=== PATIENT | male | born 1995 | race Caucasian/White ===

== ENCOUNTER 2025-01-02 13:21 | Emergency (ER) | payer OTHER, SELFPAY ==
[2025-01-02 13:22] VITALS: BP 106/62; PULSE 66; RESP 14; TEMP 36.6; O2SAT 99; BMI 37.0
--- NOTE | 2025-01-02 13:52 | EX.ED.SAOD ---
HPI History of Present Illness Chief Complaint: Substance Abuse Informant: patient and spouse/S.O. Narrative Narrative: Presents here with spouse for medical evaluation. Patient relapsed with heroin injection in October using multiple times a day. He injects last times this morning. No alcohol use. his last detox program was 5 years ago through [facility]. Per spouse multiple stressors and hanging around the wrong people. They have plans to [facility] back [facility]. However per spouse she spoke with her insurance company and was told to need to get evaluated in the emergency department for assessment. He does not want to go through the ramp program.Denies any fevers, chest pain, back pain. Prior similar symptoms: Yes PFSH PFSH Medical History Heroin abuse ETOH abuse Home Medications ?Medication ?Instructions ?Recorded ?Last Taken ?Type NK 01/02/25 Unknown History Allergy/AdvReac Type Severity Reaction Status Date / Time No Known Allergies Allergy Verified 01/02/25 13:25 Social History Smoking Status: Current every day smoker tobacco type: e-cigarettes ROS ROS ED Constitutional Constitutional ED: Denies chills, fever(s) or sweats ENT ENT ED: Denies sore throat Cardiovascular Cardiovascular: Denies chest pain, leg edema, palpitations or racing heartbeat Respiratory/Chest Respiratory/Chest: Denies cough, dyspnea or dyspnea on exertion Gastrointestinal Gastrointestinal: Denies abdominal pain, diarrhea, nausea or vomiting Genitourinary Genitourinary ED: Denies dysuria, hematuria or urinary frequency Musculoskeletal Musculoskeletal: Denies back pain, extremity pain or neck pain Integumentary Denies rash or wounds Neurologic Neurologic: Denies headache(s), paresthesias or weakness Psychiatric Psychiatric: Denies suicidal ideation or suicidal thoughts EXAM Physical Exam Const Vital Signs: 01/02/25 13:22 Temperature 97.8 F Temperature Source Temporal Pulse Rate 66 Respiratory Rate 14 Blood Pressure 106/62 Blood Pressure Mean 76 Pulse Ox 99 Oxygen Delivery Method Room Air Positive well nourished and well developed General Appearance ED: well developed and NAD HEENT Reports moist mucous membranes normocephalic and atraumatic Eyes Eyes Narrative: 2 mm pupils bilaterally. General Eye ED: Yes normal appearance of both eyes Neck full ROM Chest Wall Chest: Negative for tenderness Resp normal respiratory effort and normal air movement Effort and Inspection: symmetric chest movement; Negative for respiratory distress Cardio regular rate, regular rhythm and no murmurs Peripheral Pulses: pulses 2+ throughout GI normal to inspection, nondistended, normoactive bowel sounds and non-tender Palpation: Negative for guarding or rebound tenderness present Extremity normal to inspection General Extremety ED: Negative for edema or tenderness General Extremity: Negative for edema Neuro oriented x3 and no sensory deficits noted Sensorium / Orientation: awake and alert Skin Skin Narrative: Previous scarring along vein lines bilateral upper extremities, left antecubital no puncture wounds with ecchymosis no erythema no drainage. MDM MDM MDM Narrative Medical decision making narrative: Interventions / MDM: Differential diagnosis: Heroin dependence, IV drug use Diagnosis considered but do not suspect: N/A My EKG interpretation: N/A Imaging independently reviewed and interpreted by myself: N/A External documents reviewed: N/A Test considered but not ordered:N/A ED course: Patient admits to relapse heroin for last 2 months while playing today last use this morning. Vital stable. No indication requiring Narcan. Discussed the patient about the ramp program however he does not want to go through the ramp program. Per spouse here through insurance requiring an assessment. He has been assessed he is medically cleared. Discussed no indication for blood work for which patient does not want. He will be discharged with plan outpatient treatment program tomorrow. All questions were answered. Re-evaluation: stable Disposition discussed with patient/family/significant other: Patient and spouse Case discussed with consulting clinician: N/A This note was generated with [employer] dictation software. It may contain incorrect words, spelling, and punctuation that were not noted in checking the note before signing. Discharge Plan Triage Chief Complaint: Substance Abuse ED Provider: Chad Angulo Dx/Rx/DC Orders Clinical Impression: Heroin dependence, IV drug user Instructions: Heroin Addiction Prescriptions: No Action NK Primary Care Provider: Care Physician,No Primary Referrals: Care Physician,No Primary [Primary Care Provider] - Activity Restrictions/Additional Instructions: You are medically cleared. Continue your plans of going to [facility] tomorrow for treatment. Print Language: French Disposition Disposition: Home, Self Care
[2025-01-02 14:19] VITALS: BP 104/47; PULSE 104; RESP 10; TEMP 36.6; O2SAT 97
--- NOTE | 2025-01-02 14:20 | ED.RN ---
Pt was very sleepy when this nurse walked in the room. Pt couldn't stay awake while getting discharge vitals and paperwork. I asked is the S.O. if she would be ok getting him home. She stated that he was ok. I gave the SO the discharge instructions and paperwork. Pt got up and walked out of the room but was stumbling. Dr Angulo is aware.
== END 2025-01-02 14:22 | disposition home or self-care (01) ==
PROVIDERS: Emergency Provider Emergency Medicine; Visit Provider Emergency Medicine
DX: F11.20 Opioid dependence, uncomplicated (principal); Z63.79 Other stressful life events affecting family and household; F17.290 Nicotine dependence, other tobacco product, uncomplicated
CPT/HCPCS: 99282

== ENCOUNTER 2025-02-15 22:49 | Emergency (ER) | payer OTHER, SELFPAY ==
[2025-02-15 22:49] VITALS: BP 90/48; PULSE 73; RESP 14; TEMP 36.8; O2SAT 99; BMI 35.3
--- NOTE | 2025-02-15 22:59 | EX.ED.SAOD ---
HPI History of Present Illness Chief Complaint: Substance Abuse Informant: patient Onset/Context/Timing Onset: Today Context: Gradual Onset Timing: Continuous Worsened by: Nothing Relieved by: Nothing Associated Symptoms Associated Symptoms: Positive for vomiting*, diarrhea* and palpatations; Negative for fever*, rash*, seizure, tremor, change in mental status, trauma, suicidal ideation or homicidal ideation Narrative Narrative: Patient presents requesting detox from heroin. Patient states his last use was approximately 2 hours prior to arrival. Patient states he uses a lot daily. Patient states he normally snorts his heroin. Patient has been through detox in the past. Patient states his last detox was in 2019. Patient states that this was at a different facility. Patient states he has been using heroin for the last 4 to 5 months. Patient denies any suicidal or homicidal ideations. Patient admits to some nausea, vomiting, and diarrhea. Patient denies any fevers or chills. Patient denies any tremors or seizures. Patient does admit to some palpitations. PFSH PFS Medical History Heroin abuse ETOH abuse Home Medications ?Medication ?Instructions ?Recorded ?Last Taken ?Type NK 01/02/25 Unknown History Allergy/AdvReac Type Severity Reaction Status Date / Time No Known Allergies Allergy Verified 02/15/25 22:51 Surgical History no surgical history no surgical history Social History Smoking Status: Current every day smoker tobacco type: e-cigarettes ROS ROS ED Constitutional Constitutional ED: Denies chills or fever(s) Eyes Eyes: Denies blurry vision or change in vision ENT ENT ED: Reports rhinorrhea; Denies sore throat Cardiovascular Cardiovascular: Reports palpitations; Denies chest pain Respiratory/Chest Respiratory/Chest: Denies cough or dyspnea Gastrointestinal Gastrointestinal: Reports diarrhea, nausea and vomiting; Denies abdominal pain Genitourinary Genitourinary ED: Denies dysuria or hematuria Musculoskeletal Musculoskeletal: Denies back pain or neck pain Integumentary Denies abscess or rash Neurologic Neurologic: Denies headache(s) or weakness Allergic/Immunologic Allergic/Immunologic ED: Denies mouth swelling or urticaria EXAM Physical Exam Const Vital Signs: 02/15/25 22:49 Temperature 98.3 F Temperature Source Oral Pulse Rate 73 Respiratory Rate 14 Blood Pressure 90/48 L Blood Pressure Mean 62 Pulse Ox 99 Oxygen Delivery Method Room Air Positive well nourished and well developed General Appearance ED: well developed and NAD HEENT Reports moist mucous membranes atraumatic Neck supple and no JVD Resp normal respiratory effort and clear to auscultation bilaterally Cardio regular rate and regular rhythm GI soft to palpation, non-tender and non-distended Neuro oriented x3, CN's II-XII intact bilaterally and no sensory deficits noted [place] Coma Scale: document GCS findings Spontaneous Obeys Commands Oriented 15 Sensorium / Orientation: alert Speech: speech normal Motor Exam: strength 5/5 throughout Psych Mood & Affect: depressed MDM MDM MDM Narrative Medical decision making narrative: Medical screening labs will be obtained. CBC will be obtained to assess for leukocytosis and anemia. Basic metabolic profile will be obtained to assess for electrolyte abnormality and renal function. Urine drug screen will be obtained to assess for substance abuse. Serum alcohol level will be obtained to assess for alcohol intoxication. Management Discussion w/another healthcare provider: Hospitalist Treatment and Re-Evaluation Narrative: Case was discussed with the hospitalist for admission. She is willing to admit the patient. However, patient left prior to completing treatment. Patient told staff that he did not want detox any longer. Discharge Plan Triage Chief Complaint: Substance Abuse ED Provider: Russ Kirkpatrick Dx/Rx/DC Orders Clinical Impression: Heroin abuse Prescriptions: No Action NK Primary Care Provider: Care Physician,No Primary Referrals: Care Physician,No Primary [Primary Care Provider] - Print Language: Bol[place]ian Disposition Disposition: Elopement Discharge Date/Time: 02/15/25 23:43
--- NOTE | 2025-02-15 23:13 | HP.PCM.HOS_ITS ---
HPI - General HPI Narrative BECKY OLSON, is a 29 M who presents [facility] Medical History Heroin abuse ETOH abuse Home Medications ?Medication ?Instructions ?Recorded ?Last Taken ?Type NK 01/02/25 Unknown History Allergy/AdvReac Type Severity Reaction Status Date / Time No Known Allergies Allergy Verified 02/15/25 22:51 Surgical History no surgical history Social History Smoking Status: Current every day smoker tobacco type: e-cigarettes Vital Signs Vital Signs Vital Signs: 02/15/25 22:49 Temperature 98.3 F Temperature Source Oral Pulse Rate 73 Respiratory Rate 14 Blood Pressure 90/48 L Blood Pressure Mean 62 Pulse Ox 99 Oxygen Delivery Method Room Air Weight Weight: 114.804 kg Body Mass Index (BMI) 35.3
--- NOTE | 2025-02-15 23:21 | ED.RN ---
Pt and suddenly came out of room and stated that they needed to go to their car. Informed pt that if he left he was unable to come back in, that he would have to sign in again. Asked pt what he needed, he said a phone historical archeologist, instructed that could go get it and bring it to triage. Pt goes back to room. This nurse in to draw blood and review contract, pt would not get off phone. Instructed pt that he would need to give nurse full attention to review contract and sign as nurse went thru admission criteria/agreement. Pt states what the fuck ever. Then pt answers phone, looks at this nurse and says why the fuck can't my come back. This nurse informed pt that staff were concerned given abrupt need to go to the car that pt was going to use and that staff was concerned for bringing drugs into the department. Pt then gets up, throws tourniquet at this nurse and yells fuck you guys and fuck this place and leaves department.
--- NOTE | 2025-02-15 23:21 | ED.RN ---
While at the nurses station, pt and pt abruptly open room 3's door and begin to walk down the hallway. Pt asked where he was going and pt states I am going to my car to get my phone sexton helper. Pt made aware that he is not able to leave ED but is able to get belongings and bring them to triage. Pt goes back into room and RN Sparr into room to obtain blood work. (see RN Sparr nursing note)
== END 2025-02-15 23:43 | disposition left against medical advice (07) ==
PROVIDERS: Emergency Provider Emergency Medicine; Visit Provider Emergency Medicine
DX: F11.10 Opioid abuse, uncomplicated (principal); R11.2 Nausea with vomiting, unspecified; R19.7 Diarrhea, unspecified; R00.2 Palpitations; F17.290 Nicotine dependence, other tobacco product, uncomplicated
CPT/HCPCS: 99282